=== PATIENT | male | born 1975 | race Caucasian/White ===

== ENCOUNTER 2016-12-22 16:43 | Emergency (ER) | payer OTHER ==
[~2016-12-22] VITALS: Ht 185.4 cm; Wt 230.6 kg
[~2016-12-22 16:43] MED LIST: ADVIL200 M1 PO; AZITHROMYCIN500 M1 PO; BENADRYL25 MG PO; FUROSEMIDE40 MG PO; LISINOPRIL10 MG PO; MELOXICAM15 MG PO; NIX 5% CREAM60 GM TP; NOHOMEMEDS; TYLENOL EXTRA500 MG PO
[2016-12-22 17:20] LABS: HEMATOCRIT 47.9 % (38.0-50.0); MCH 27.1 PG (29.0-34.0); MCHC 32.2 G/DL (30.0-36.0); MCV 84.3 FL (86-99); MEAN PLAT.VOLUME 11.6 uM^3 (9.0-12.4); PLATELET COUNT 284 K/uL (156-360); RBC DIS.WIDTH-SD 43.3 % (39-53); RED BLOOD COUNT 5.68 M/uL (4.00-5.50); WHITE BLOOD COUNT 11.5 K/uL (4.1-10.2)
[2016-12-22 17:28] LABS: CHLORIDE 103 mEq/L (99-109); POTASSIUM 4.1 mEq/L (3.7-5.4); SODIUM 138 mEq/L (136-147)
[2016-12-22 17:30] LABS: GLUCOSE 97 mg/dL (70-99)
[2016-12-22 17:31] LABS: ANION GAP 10 MEQ/L (2-14)
[2016-12-22 17:34] LABS: GFR ESTIMATE (CALCULATED) > 59 mL/min/; UREA NITROGEN (BUN) 9 mg/dL (9-23)
[2016-12-22 17:41] LABS: TROP-I INTERPRETATION NEGATIVE; TROPONIN-I < 0.01 ng/mL (0.0-0.30)
[2016-12-22 18:32] VITALS: BP 104/50
== END 2016-12-22 18:33 | disposition home or self-care (01) ==
LOC: EME 16:43
PROVIDERS: Emergency Medicine
DX: R55 Syncope and collapse (principal); R11.0 Nausea; I10 Essential (primary) hypertension; Z91.14 Patient's other noncompliance with medication regimen; E66.9 Obesity, unspecified; Z68.44 Body mass index [BMI] 60.0-69.9, adult
CPT/HCPCS: 80048; 84484; 85027; 93005; 99281; 99284